=== PATIENT | male | born 1955 | race Caucasian/White ===

== ENCOUNTER 2018-05-08 06:06 | Emergency (ER) | payer BC, OTHER ==
[2018-05-08] MEDS: EPINEPHrine 1:10,000 1 MG/10 ML Syringe IVPUSH ONE ×2 (06:33→06:40)
[2018-05-08] MEDS: Ondansetron 4 MG/2 ML SDV IVPUSH ONE (06:47)
[2018-05-08] MEDS: Tenecteplase 50 MG Kit IV ONE (07:14)
[2018-05-08] MEDS: Sodium Chloride 0.9% 1,000 ML ONE ×2 (07:21→08:07)
[2018-05-08] MEDS: Tenecteplase 50 MG Kit ONE (07:21)
[2018-05-08] MEDS: Ondansetron 4 MG/2 ML SDV ONE (07:22)
[2018-05-08] MEDS: Amiodarone 150 MG/3 ML SDV IVPUSH ONE (07:39)
[2018-05-08] MEDS: Amiodarone 450 MG in Dextrose 5% in Water 250 ML IV STA ×2 (07:40)
[2018-05-08] MEDS: Aspirin 81 MG Tab.Chew PO ONE (07:53)
[2018-05-08] MEDS: Sodium Chloride 0.9% 1,000 ML IV STA (08:51)
--- NOTE | 2018-05-08 09:40 | EDM.PDOC ---
ED HPI GENERAL MEDICAL PROBLEM - General Chief Complaint: General Stated Complaint: nausea, "don't feel well" Time Seen by Provider: 05/08/18 06:33 Source of Information: Reports: Patient History Limitations: Reports: Other (history obtained after patient more responsive) - History of Present Illness INITIAL COMMENTS - FREE TEXT/NARRATIVE: Patient unresponsive on my arrival. CPR in progress. Has been defibrillated x2 with one dose of epinephrine given. Second dose given at this time. 15 liters of oxygen given by assisted respirations. Patient became alert within thereafter. Oriented but unaware of what had occurred. He relates around 5 am today, while at work, he just didn't feel quite right. States had a coughing spell when outside, felt somewhat nauseated. Went in to the restroom and noted that his face was very pale so thought he should probable leave his shift and go home. He relates he sat in his car for about 40 minutes or so and when didn' t feel much better, felt he should be evaluated before going home. Initial complaints to the nurse were of nausea and weakness. Orders given by phone to nurse and while I was enroute to the ER, EKG was done that showed acute VT. Within 3 minutes, patient became unresponsive with v fib noted on monitor. Patient has a known history of hypertension, untreated. Denies any cardiac history, chronic lung concerns or abdominal problems. Does have intermittent cough due to chronic smoking. Denies having any medical care other than for the "usual cold". Admits that was outside, did do light shoveling but no other unusual activities than his norm at work Onset: Today, Sudden Duration: Hour(s): Location: Reports: Generalized Associated Symptoms: Reports: Nausea/Vomiting. Denies: Chest Pain, Diaphoresis , Fever/Chills, Shortness of Breath, Syncope, Weakness - Related Data Allergies Allergy/AdvReac Type Severity Reaction Status Date / Time No Known Allergies Allergy Verified 05/08/18 06:10 Home Meds: Home Meds . [No Known Home Meds] 05/20/13 [History] Past Medical History - Past Health History Medical/Surgical History: Denies Medical/Surgical History Cardiovascular History: Reports: Hypertension - Past Surgical History GI Surgical History: Reports: Appendectomy Social & Family History - Family History Cardiac: Reports: VT - Tobacco Use Smoking Status *Q: Current Every Day Smoker Years of Tobacco use: 50 Packs/Tins Daily: 0.5 - Living Situation & Occupation Living situation: Reports: Occupation: Employed ED ROS GENERAL - Review of Systems Review Of Systems: See Below Constitutional: Reports: Malaise, Weakness. Denies: Fever, Chills HEENT: Reports: No Symptoms Respiratory: Reports: Cough. Denies: Shortness of Breath Cardiovascular: Denies: Chest Pain, Edema, Lightheadedness Endocrine: Reports: Fatigue GI/Abdominal: Reports: Nausea. Denies: Abdominal Pain, Vomiting : Reports: No Symptoms Musculoskeletal: Reports: No Symptoms Skin: Reports: Pallor Neurological: Reports: Weakness ED EXAM, GENERAL - Physical Exam Exam: See Below Exam Limited By: Other (initially cardiac arrest on my arrival, see [facility] report for code, interventions.) General Appearance: Obtunded (obtunded but once responsive, is alert and oriented x3.) Eye Exam: Bilateral Eye: PERRL Ears: Normal External Exam, Normal TMs Throat/Mouth: Normal Inspection, Normal Oropharynx Head: Normocephalic Neck: Normal Inspection, Supple, Non-Tender Respiratory/Chest: Lungs Clear Cardiovascular: Bradycardia, Other (see telemetry strips. Did vary between v fib, bradycardia and NSR) GI/Abdominal: Normal Bowel Sounds, Soft, Non-Tender Extremities: Normal Inspection Neurological: Oriented Skin Exam: Pallor (pallor to cyanotic appearing at times) Course - Vital Signs Last Recorded V/S: Last Vital Signs Temp 97.2 F 05/08/18 06:07 Pulse 70 05/08/18 06:07 Resp 18 05/08/18 06:07 BP 140/94 H 05/08/18 06:07 Pulse Ox 99 05/08/18 06:07 - Orders/Labs/Meds Orders: Active Orders 24 hr Category Date Time Status Chest 1V Frontal [CR] Routine Exams 05/08/18 Taken Labs: Laboratory Tests 05/08/18 05/08/18 05/08/18 Range/Units 06:42 06:42 06:42 WBC 11.3 H (5.0-10.0) 10^3/uL RBC 4.74 (4.50-6.00) 10^6/uL Hgb 15.1 (14.0-18.0) g/dL Hct 44.2 (40.0-54.0) % MCV 93.2 (82.0-94.0) fL MCH 31.9 (27.0-32.0) pg MCHC 34.2 (33.0-38.0) g/dL RDW Coeff of Rajani 13.6 (11.0-15.0) % Plt Count 265 (150-400) 10^3/uL Neut % (Auto) 52.9 (35-85) % Lymph % (Auto) 34.4 (10-55) % [place] % (Auto) 11.4 (0-16) % Eos % (Auto) 1.1 (0-5) % Baso % (Auto) 0.2 (0-3) % Neut # (Auto) 6.00 (1.80-7.00) 10^3/uL Lymph # (Auto) 3.89 (1.00-4.80) 10^3/uL [place] # (Auto) 1.29 H (0.00-0.80) 10^3/uL Eos # (Auto) 0.12 (0.00-0.45) 10^3/uL Baso # (Auto) 0.02 10^3/uL PT 9.6 L (9.7-12.3) SEC INR 0.92 (0.92-1.18) APTT 28.4 (23.2-32.3) SEC Sodium 142 (136-145) mEq/L Potassium 3.4 L (3.5-5.0) mEq/L Chloride 102 (98-106) mEq/L Carbon Dioxide 28 (21-32) mmol/L BUN 24 H (7-18) mg/dL Creatinine 1.3 (0.7-1.3) mg/dL Est Cr Clr Drug Dosing 51.12 mL/min Estimated GFR (MDRD) 55 L (>=60) mL/min Glucose 159 H (75-99) mg/dL Calcium 8.9 (8.4-10.1) mg/dL Total Bilirubin 0.3 (0.0-1.0) mg/dL AST 39 H (15-37) U/L ALT 40 (12-78) U/L Alkaline Phosphatase 75 (46-116) U/L Lactate Dehydrogenase 165 (100-190) U/L Creatine Kinase 114 (35-232) U/L Troponin I 0.125 H (0.00-0.06) ng/mL Total Protein 7.8 (6.4-8.2) g/dL Albumin 3.5 (3.4-5.0) g/dL Meds: Medications Discontinued Medications Generic Name Dose Route Start Last Admin Trade Name Julio César PRN Reason Stop Dose Admin Amiodarone HCl 150 mg 05/08/18 07:50 05/08/18 07:39 Cordarone IVPUSH 05/08/18 07:51 150 mg ONETIME ONE Administration Aspirin 324 mg 05/08/18 07:55 05/08/18 07:53 Aspirin PO 05/08/18 07:56 324 mg ONETIME ONE Administration Epinephrine HCl 1 mg 05/08/18 07:18 05/08/18 06:33 Epinephrine 1:10,000 IVPUSH 05/08/18 07:19 1 mg ONETIME ONE Administration Epinephrine HCl 1 mg 05/08/18 07:19 05/08/18 06:40 Epinephrine 1:10,000 IVPUSH 05/08/18 07:20 1 mg ONETIME ONE Administration Sodium Chloride Confirm 05/08/18 06:30 05/08/18 07:21 Normal Saline Administered 05/08/18 06:31 Not Given Dose 1,000 mls @ as directed .ROUTE .STK-MED ONE Sodium Chloride 1,000 mls @ 999 mls/hr 05/08/18 07:19 05/08/18 08:51 Normal Saline IV 05/08/18 08:19 999 mls/hr NOW STA Administration Sodium Chloride Confirm 05/08/18 07:20 05/08/18 08:07 Normal Saline Administered 05/08/18 07:21 Not Given Dose 1,000 mls @ as directed .ROUTE .STK-MED ONE Amiodarone HCl 450 mg/ 259 mls @ 33.3 mls/hr 05/08/18 07:51 05/08/18 07:40 Dextrose/Water IV 05/08/18 15:37 33.3 mls/hr NOW STA Administration Ondansetron HCl Confirm 05/08/18 06:34 05/08/18 07:22 Zofran Administered 05/08/18 06:35 Not Given Dose 4 mg .ROUTE .STK-MED ONE Ondansetron HCl 4 mg 05/08/18 07:18 05/08/18 06:47 Zofran IVPUSH 05/08/18 07:19 4 mg STAT ONE Administration Tenecteplase Confirm 05/08/18 06:53 05/08/18 07:21 Tnkase Administered 05/08/18 06:54 Not Given Dose 50 mg .ROUTE .STK-MED ONE Tenecteplase 40 mg 05/08/18 07:20 05/08/18 07:14 Tnkase IV 05/08/18 07:21 40 mg NOW ONE Administration Protocol - Re-Assessments/Exams Free Text/Narrative Re-Assessment/Exam: 05/08/18 0633 On my arrival, CPR in progress. Nurse assisting ventilation with full oxygen support. Patient has been defibrillated x2, now given 2nd dose of epinephrine. Shortly after, patient becomes alert, rhythm sinus molina. For full documentation of code, see [facility] notes. Patient oriented while awake. Overall was given, 150 mg of Amiodarone IVP and started on Amiodarone drip. Did discuss case with Dr. Santiago at [facility] and advised to proceed with TNKase. Potential risks and benefits discussed with patient. Contraindications ruled out. TNKase given. Patient did have 3 further episodes of v fib while here requiring 4 further shocks at 200 joules. ASA 324 mg given. Is oriented after each event. Family at bedside. Patient and family aware of status. Risks and benefits of transfer discussed with patient. Risks of transfer include worsening status including , plane crash. Benefits include intervention done by cardiac specialty care. Risks of non transfer include worsening status and . Benefits of non transfer is care close to home. Both patient and agree to transfer. Critical care of patient 120 minutes Departure - Departure Time of Disposition: 08:30 Disposition: DC/Tfer to Acute Hospital 02 Condition: Critical Clinical Impression: VT, Myocardial infarction - Discharge Information *PRESCRIPTION DRUG MONITORING PROGRAM REVIEWED*: No *COPY OF PRESCRIPTION DRUG MONITORING REPORT IN PATIENT CANDACE: No Referrals: PCP,Unknown [Primary Care Provider] - Forms: ED Department Discharge Additional Instructions: Transfer per fixed wing to [facility] - My Orders Last 24 Hours: My Active Orders 05/08/18 Chest 1V Frontal [CR] Routine - Assessment/Plan Last 24 Hours: My Active Orders 05/08/18 Chest 1V Frontal [CR] Routine
== END 2018-05-08 08:30 ==
LOC: CC.ED 06:06
DX: I21.9 Acute myocardial infarction, unspecified (principal); F17.210 Nicotine dependence, cigarettes, uncomplicated
CPT/HCPCS: 36415; 71045; 80053; 82550; 83615; 84484; 85025; 85610; 85730; 92950; 93005; 96365; 96366; 96368; 96374; 96375; 99291; 99292; A9270; J0171; J0282; J2405; J3101; J7030; J7060